=== PATIENT | male | born 1960 | race Caucasian/White ===

== ENCOUNTER 2022-03-16 14:58 | Outpatient (CLI) | payer MEDICAID, SELFPAY | END 2022-03-16 14:59 | disposition home or self-care (01) | LOC: INJ CL 14:59 | PROVIDERS: PCP Family Medicine; Visit Provider Family Medicine | DX: M17.12 Unilateral primary osteoarthritis, left knee (principal); M25.562 Pain in left knee | CPT/HCPCS: 64454 ==

== ENCOUNTER 2022-04-13 13:17 | Outpatient (CLI) | payer MEDICAID, SELFPAY | END 2022-04-13 13:18 | disposition home or self-care (01) | LOC: INJ CL 13:19 | PROVIDERS: PCP Family Medicine; Visit Provider Family Medicine | DX: M25.562 Pain in left knee (principal); G89.29 Other chronic pain | CPT/HCPCS: 64624; J2250; J3010 ==